=== PATIENT | male | born 1950 | race Caucasian/White ===

== ENCOUNTER 2017-10-07 10:11 | Inpatient (IN) | payer MEDICARE ==
[~2017-10-07] VITALS: Ht 180.3 cm; Wt 151.0 kg
[2017-10-07] MEDS ORDERED: METF500T5 PO (10:46)
[2017-10-07] MEDS ORDERED: ASPI-496 PO (10:46)
[2017-10-07] MEDS ORDERED: HYDR-3342 PO (10:46)
[2017-10-07] MEDS ORDERED: DOCU100C33 PO (10:46)
[2017-10-07] MEDS ORDERED: SIME125T39 PO (10:46)
[2017-10-07] MEDS ORDERED: [UNRECOGNIZED DRUG - OTHER] (10:46)
[2017-10-07] MEDS ORDERED: CARV6.252 PO (10:46)
[2017-10-07] MEDS ORDERED: RIVA20TA PO (10:46)
[2017-10-07] MEDS ORDERED: [UNRECOGNIZED DRUG - CODE] PO (10:46)
[2017-10-07] MEDS ORDERED: LISI40TA PO (10:46)
[2017-10-07] MEDS ORDERED: DILT120T3 PO (10:46)
[2017-10-07] MEDS ORDERED: THIA250T4 PO (10:46)
[2017-10-07] MEDS ORDERED: CHLO25TA PO (10:46)
[2017-10-07] MEDS ORDERED: OMEP-110 PO (10:46)
[2017-10-07] MEDS ORDERED: ACETAMINOPHEN 325 MG TABLET PO PRN (11:30)
[2017-10-07] MEDS ORDERED: DOCUSATE 100 MG CAPSULE PO PRN (11:30)
[2017-10-07] MEDS ORDERED: INSTRUCTION SEE COMMENTS XX ONE (11:30)
[2017-10-07] MEDS ORDERED: BISACODYL 10 MG SUPP PR PRN (11:30)
[2017-10-07] MEDS ORDERED: LIDODERM 5% PATCH TD PRN (11:30)
[2017-10-07] MEDS ORDERED: POLYETHYLENE GLYCOL 17 GM PACKET PO PRN (11:30)
[2017-10-07] MEDS ORDERED: SODIUM CHLORIDE FLUSH 10ML SYR IVF PRN (13:00)
[2017-10-07 14:48] VITALS: BP 129/100
[2017-10-07 15:03] VITALS: BP 141/90
[2017-10-07] MEDS: DILTIAZEM 120 MG TABLET PO SCH ×2 (15:40→21:57)
[2017-10-07] MEDS: ATORVASTATIN 80 MG TABLET PO SCH (21:57)
[2017-10-08 04:00] VITALS: BP 116/79
[2017-10-08 04:43] LABS: BASOPHILS # (AUTO) 0.05 x10^3/uL (0-0.1); BASOPHILS % (AUTO) 0 % (0-1); EOSINOPHILS # (AUTO) 0.13 x10^3/uL (0-0.4); EOSINOPHILS % (AUTO) 1 % (1-7); LYMPHOCYTES % (AUTO) 14 % (22-44); MD NO; MEAN CORPUSCULAR HEMOGLOBIN 30.2 pg (27.5-34.5); MEAN CORPUSCULAR HGB CONC 33.7 g/dL (33.2-36.2); MEAN CORPUSCULAR VOLUME 89.7 fL (81-97); MEAN PLATELET VOLUME 9.2 fL (7.4-10.4); MONOCYTES # (AUTO) 0.79 x10^3/uL (0.2-0.8); MONOCYTES % (AUTO) 6 % (2-9); NEUTROPHILS % (AUTO) 78 % (42-75); PLATELET COUNT 252 x10^3/uL (130-400); RED BLOOD COUNT 5.54 x10^6/uL (4.38-5.82); RED CELL DISTRIBUTION WIDTH 13.9 % (9.4-14.8)
[2017-10-08 04:50] LABS: INTERNATIONAL NORMALIZED RATIO 1.16 (0.93-1.1); PROTHROMBIN TIME 11.9 Seconds (9.6-11.5)
[2017-10-08 04:54] LABS: ALANINE AMINOTRANSFERASE 21 U/L (12-78); ALBUMIN 3.1 g/dL (3.4-5.0); ANION GAP 6 mmol/L (5-15); CALCIUM 8.6 mg/dL (8.5-10.1); CHLORIDE 104 mmol/L (98-107); CHOLESTEROL, TOTAL 113 mg/dL (140-239); CREATININE 1.13 mg/dL (0.7-1.3)
[2017-10-08 04:57] LABS: ALKALINE PHOSPHATASE 101 U/L (45-117); BILIRUBIN,TOTAL 0.5 mg/dL (0.2-1.0); CHOL/HDL RATIO 3.3; HDL CHOL % 30 % (26-37); HDL CHOLESTEROL (DIRECT) 34 mg/dL (40-60); LDL CHOLESTEROL,CALCULATED 54 mg/dL (54-169); LDL/HDL RATIO 1.6 (0.5-3.0); TOTAL PROTEIN 7.2 g/dL (6.4-8.2); TRIGLYCERIDES 123 mg/dL (50-200); VLDL CHOLESTEROL 25 mg/dL (0-25)
[2017-10-08] MEDS: OMEPRAZOLE 20 MG CAPSULE.DR PO SCH (08:22)
[2017-10-08] MEDS: DILTIAZEM 120 MG TABLET PO SCH ×3 (08:22→20:54)
[2017-10-08] MEDS: THIAMINE 100MG TABLET PO SCH (08:23)
[2017-10-08] MEDS: MULTIVITAMINS/MINERALS TABLET PO SCH (08:23)
[2017-10-08] MEDS: LISINOPRIL 20 MG TABLET PO SCH (08:24)
[2017-10-08] MEDS: DOCUSATE 100 MG CAPSULE PO SCH (08:25)
[2017-10-08 12:39] VITALS: BP 124/80
[2017-10-08] MEDS ORDERED: DILTIAZEM 60 MG TABLET ONE ×2 (17:02→20:47)
[2017-10-08 19:54] VITALS: BP 147/98
[2017-10-08 20:52] VITALS: BP 151/95
[2017-10-08] MEDS: ATORVASTATIN 80 MG TABLET PO SCH (20:53)
[2017-10-09 01:32] VITALS: BP 137/88
[2017-10-09 05:40] LABS: BASOPHILS # (AUTO) 0.03 x10^3/uL (0-0.1); BASOPHILS % (AUTO) 0 % (0-1); EOSINOPHILS # (AUTO) 0.22 x10^3/uL (0-0.4); EOSINOPHILS % (AUTO) 2 % (1-7); LYMPHOCYTES # (AUTO) 2.33 x10^3/uL (1-3.4); LYMPHOCYTES % (AUTO) 19 % (22-44); MD NO; MEAN CORPUSCULAR HEMOGLOBIN 30.6 pg (27.5-34.5); MEAN CORPUSCULAR HGB CONC 34.1 g/dL (33.2-36.2); MEAN CORPUSCULAR VOLUME 89.9 fL (81-97); MEAN PLATELET VOLUME 9.2 fL (7.4-10.4); MONOCYTES # (AUTO) 0.76 x10^3/uL (0.2-0.8); MONOCYTES % (AUTO) 6 % (2-9); NEUTROPHILS # (AUTO) 8.67 x10^3/uL (1.8-6.8); NEUTROPHILS % (AUTO) 72 % (42-75); PLATELET COUNT 260 x10^3/uL (130-400); RED BLOOD COUNT 5.45 x10^6/uL (4.38-5.82); RED CELL DISTRIBUTION WIDTH 13.7 % (9.4-14.8)
[2017-10-09 05:42] LABS: ALANINE AMINOTRANSFERASE 22 U/L (12-78); ANION GAP 7 mmol/L (5-15); CALCIUM 8.5 mg/dL (8.5-10.1); CHLORIDE 103 mmol/L (98-107); CREATININE 1.28 mg/dL (0.7-1.3)
[2017-10-09 05:43] LABS: ALKALINE PHOSPHATASE 103 U/L (45-117); BILIRUBIN,TOTAL 0.7 mg/dL (0.2-1.0); TOTAL PROTEIN 7.1 g/dL (6.4-8.2)
[2017-10-09 06:35] LABS: HEMOGLOBIN A1C 7.9 % (4.2-6.3)
[2017-10-09 08:00] VITALS: BP 128/92
[2017-10-09] MEDS: DOCUSATE 100 MG CAPSULE PO SCH (09:00)
[2017-10-09] MEDS: MULTIVITAMINS/MINERALS TABLET PO SCH (09:08)
[2017-10-09] MEDS: DILTIAZEM 120 MG TABLET PO SCH (09:09)
[2017-10-09] MEDS: LISINOPRIL 20 MG TABLET PO SCH (09:09)
[2017-10-09] MEDS: OMEPRAZOLE 20 MG CAPSULE.DR PO SCH (09:09)
[2017-10-09] MEDS: THIAMINE 100MG TABLET PO SCH (09:10)
[2017-10-09] MEDS ORDERED: ATOR-2 PO (10:21)
== END 2017-10-09 15:50 | disposition home or self-care (01) | DRG 64 ==
LOC: ED 10:44 → EDIP 11:37 → CCU 14:11 → CSU 14:12 → 4EST 10-08 12:48
PROVIDERS: ADMIT Hospitalist; ATTEND Family Medicine
DX: I61.1 Nontraumatic intracerebral hemorrhage in hemisphere, cortical (principal); G93.6 Cerebral edema; I69.351 Hemiplegia and hemiparesis following cerebral infarction affecting right dominant side; D68.69 Other thrombophilia; I10 Essential (primary) hypertension; I48.2 Chronic atrial fibrillation; H93.12 Tinnitus, left ear; E11.9 Type 2 diabetes mellitus without complications; D72.829 Elevated white blood cell count, unspecified; I08.1 Rheumatic disorders of both mitral and tricuspid valves; I77.819 Aortic ectasia, unspecified site; Z84.1 Family history of disorders of kidney and ureter; Z79.82 Long term (current) use of aspirin; Z79.899 Other long term (current) drug therapy; Z79.01 Long term (current) use of anticoagulants
CPT/HCPCS: 36415; 70450; 70551; 80053; 80061; 83036; 83735; 84100; 85025; 85610; 87081; 93005; 93306; 93880; 93970; 99285

== ENCOUNTER 2018-02-09 08:34 | Day surgery (SDC) | payer MEDICARE ==
[~2018-02-09] VITALS: Ht 180.3 cm; Wt 148.0 kg
[~2018-02-09 08:34] MED LIST: ASPI-496 PO; ATOR-2 PO; CARV6.252 PO; CHLO25TA PO; DILT120T3 PO; DOCU100C33 PO; HYDR-3342 PO; LISI40TA PO; METF500T17 PO; OMEP-110 PO; RIVA20TA PO; SIME125T39 PO; THIA250T4 PO; [UNRECOGNIZED DRUG - CODE] PO; [UNRECOGNIZED DRUG - OTHER]
[2018-02-09 10:18] VITALS: BP 148/81
[2018-02-09] MEDS ORDERED: SODIUM CHLORIDE 0.9% 1,000 ML IV ONE (10:30)
[2018-02-09] MEDS ORDERED: ATOR40TA PO (10:32)
[2018-02-09] MEDS ORDERED: DILT120C9 PO (10:32)
[2018-02-09] MEDS ORDERED: CARV6.252 PO (10:32)
[2018-02-09] MEDS ORDERED: ASPI-515 PO (10:32)
[2018-02-09] MEDS ORDERED: PROPOFOL 10 MG/ML, 20ML ONE (12:44)
== END 2018-02-09 14:15 | disposition home or self-care (01) ==
LOC: CACL 08:34
PROVIDERS: ATTEND Internal Medicine Cardiovascular Disease
DX: I34.0 Nonrheumatic mitral (valve) insufficiency (principal); I36.1 Nonrheumatic tricuspid (valve) insufficiency; I48.91 Unspecified atrial fibrillation; Z79.82 Long term (current) use of aspirin; Z98.890 Other specified postprocedural states; Z79.899 Other long term (current) drug therapy
CPT/HCPCS: 93312; 93321; 93325; J2704

== ENCOUNTER 2018-04-28 10:15 | Day surgery (SDC) | payer MEDICARE ==
[~2018-04-28] VITALS: Ht 182.9 cm; Wt 154.5 kg
[~2018-04-28 10:15] MED LIST changes: +ASPI-515 PO; +ATOR40TA PO; +DILT120C9 PO; -SIME125T39 PO; +SIME125T50 PO
[2018-04-28 11:18] VITALS: BP 147/85
[2018-04-28] MEDS ORDERED: SODIUM CHLORIDE 0.9% 1,000 ML IV SCH (11:30)
[2018-04-28] MEDS ORDERED: WARF-36 PO (11:41)
[2018-04-28] MEDS ORDERED: WARF7.5T46 PO (11:41)
[2018-04-28] MEDS ORDERED: DILT300C32 PO (11:41)
[2018-04-28] MEDS ORDERED: AMLO-150 PO (11:41)
[2018-04-28] MEDS ORDERED: WARF10TA43 PO (11:41)
[2018-04-28] MEDS ORDERED: PROPOFOL 10 MG/ML, 20ML ONE (14:31)
== END 2018-04-28 16:27 | disposition home or self-care (01) ==
LOC: CACL 10:15
PROVIDERS: ATTEND Internal Medicine Cardiovascular Disease
DX: I34.0 Nonrheumatic mitral (valve) insufficiency (principal); I36.1 Nonrheumatic tricuspid (valve) insufficiency
CPT/HCPCS: 93312; 93325; J2704